=== PATIENT | female | born 1945 | race Hispanic/Latino ===

== ENCOUNTER 2017-05-23 22:42 | Inpatient (IN) | payer OTHER, MEDICARE ==
[~2017-05-23] VITALS: Ht 165.1 cm; Wt 71.3 kg
[2017-05-23] MEDS: SODIUM CHLORIDE 0.9% 1000ML 1,000 ML IV SCH (23:30)
[2017-05-24] MEDS ORDERED: SODIUM CHLORIDE 0.9% 1000ML 1,000 ML IV SCH (00:40)
[2017-05-24] MEDS ORDERED: ONDANSETRON HCL 4 MG/2 ML VIAL IVP PRN (00:45)
[2017-05-24] MEDS ORDERED: DEXTROSE 50%-WATER 50 ML DISP.SYRIN IV PRN (00:45)
[2017-05-24] MEDS ORDERED: NITROGLYCERIN 0.4 MG SL TAB SL PRN (00:45)
[2017-05-24] MEDS ORDERED: ACETAMINOPHEN 325 MG TAB PO PRN (00:45)
[2017-05-24] MEDS ORDERED: DiphenhydrAMINE HCL 50 MG/ML VIAL IV PRN (00:45)
[2017-05-24] MEDS ORDERED: LACTULOSE 20 GM/30 ML UDCUP PO PRN (00:45)
[2017-05-24] MEDS ORDERED: POTASSIUM CHLORIDE 20MEQ/100ML 100 ML IV PRN (00:45)
[2017-05-24] MEDS ORDERED: LIDOCAINE HCL-MPF 1% 2ML VIAL IVP PRN (00:45)
[2017-05-24] MEDS ORDERED: IPRATROPIUM/ALBUTEROL SULFATE 3 ML SOLUTION IH PRN (00:45)
[2017-05-24] MEDS ORDERED: HYDRALAZINE HCL 20 MG/ML VIAL IV PRN (00:45)
[2017-05-24] MEDS ORDERED: GLUCAGON 1MG KIT 1 MG ML IM PRN (00:45)
[2017-05-24] MEDS ORDERED: POTASSIUM CHLORIDE 10% ELIXIR 20 MEQ/15 ML UDCUP PO PRN (00:45)
[2017-05-24] MEDS ORDERED: SODIUM CHLORIDE 0.9% 1000ML 1,000 ML IV ONE (01:19)
[2017-05-24 06:25] LABS: BASOPHILS % (AUTO) 0.3 % (0.0-5.0); EOSINOPHILS % (AUTO) 1.7 % (0.0-8.0); HEMATOCRIT 39.1 % (36-48); LYMPHOCYTES % (AUTO) 35.4 % (21.0-51.0); MEAN CORPUSCULAR HEMOGLOBIN 30.1 pg (27.0-33.0); MEAN CORPUSCULAR HGB CONC 34.6 g/dL (32.0-36.0); MONOCYTES % (AUTO) 7.7 % (3.0-13.0); NEUTROPHILS % (AUTO) 54.9 % (40.0-77.0); PLATELET COUNT (AUTO) 278 K/uL (130-400); RED BLOOD CELL COUNT(AUTO) 4.49 MIL/uL (4.00-5.50); RED CELL DISTRIBUTION WIDTH 13.4 % (11.0-15.5)
[2017-05-24 06:31] LABS: HEMOGLOBIN A1C 13.2 % (4.0-6.0)
[2017-05-24 06:51] LABS: CREATININE 0.8 mg/dL (0.5-1.5); THYROID STIMULATING HORMONE 3.65 uIU/mL (0.36-3.74)
[2017-05-24] MEDS: INSULIN HUMULIN R 100 UNIT/ML 3ML SQ SCH ×4 (07:30→22:54)
[2017-05-24] MEDS: FAMOTIDINE/PF 20 MG/2 ML VIAL IV SCH ×2 (09:00→22:45)
[2017-05-24] MEDS ORDERED: FAMOTIDINE/PF 20 MG/2 ML VIAL IV ONE (09:30)
[2017-05-24] MEDS: SODIUM CHLORIDE 0.9% 1000ML 1,000 ML IV SCH ×2 (12:50→16:04)
[2017-05-24 14:29] VITALS: BP 121/71
[2017-05-24 15:51] VITALS: BP 134/62
[2017-05-24 19:05] VITALS: BP 133/58
[2017-05-24 23:21] VITALS: BP 123/57
[2017-05-24] MEDS ORDERED: MECL-111 PO (23:52)
[2017-05-24] MEDS ORDERED: LORA10TA7 PO (23:52)
[2017-05-24] MEDS ORDERED: ATOR40TA69 PO (23:52)
[2017-05-24] MEDS ORDERED: INSLAN SQ (23:52)
[2017-05-24] MEDS ORDERED: OMEP20TA25 PO (23:52)
[2017-05-24] MEDS ORDERED: FERR324T4 PO (23:52)
[2017-05-24] MEDS ORDERED: CHOL500050 PO (23:52)
[2017-05-24] MEDS ORDERED: SAXA1TBM2 PO (23:52)
[2017-05-24] MEDS ORDERED: GLIP10TA9 PO (23:52)
[2017-05-24] MEDS ORDERED: CITA40TA6 PO (23:52)
[2017-05-24] MEDS ORDERED: LISI10TA7 PO (23:52)
[2017-05-25 00:34] LABS: APPEARANCE,URINE Clear (CLEAR); BILIRUBIN,URINE Negative (NEGATIVE); COLOR,URINE Yellow (YELLOW); GLUCOSE, URINE (UA) >=1000 mg/dL (NEGATIVE); KETONES,URINE 15 mg/dL (NEGATIVE); LEUKOCYTE ESTERASE ,URINE Negative (NEGATIVE); NITRATE,URINE Negative (NEGATIVE); OCCULT BLOOD,URINE Small (NEGATIVE); PH,URINE 7.5 (5.0-8.0); PROTEIN,URINE Negative (NEGATIVE); UROBILINOGEN,URINE 0.2 mg/dL (0.2-1.0)
[2017-05-25 00:45] LABS: BACTERIA,URINE None Seen /HPF (None Seen); RBC,URINE 0-1 /HPF (0-1); SQUAMOUS EPITHELIAL CELL,UR Rare /LPF (0-2); WBC,URINE None Seen /HPF (0-1); YEAST,URINE BUDDING Rare /HPF (None Seen)
[2017-05-25 03:25] VITALS: BP 106/54
[2017-05-25 04:30] LABS: BASOPHILS % (AUTO) 0.4 % (0.0-5.0); EOSINOPHILS % (AUTO) 2.5 % (0.0-8.0); HEMATOCRIT 39.9 % (36-48); LYMPHOCYTES % (AUTO) 33.6 % (21.0-51.0); MEAN CORPUSCULAR HEMOGLOBIN 29.7 pg (27.0-33.0); MEAN CORPUSCULAR HGB CONC 34.3 g/dL (32.0-36.0); MEAN CORPUSCULAR VOLUME 86.7 fL (79-99); MONOCYTES % (AUTO) 7.6 % (3.0-13.0); NEUTROPHILS % (AUTO) 55.9 % (40.0-77.0); PLATELET COUNT (AUTO) 285 K/uL (130-400); RED CELL DISTRIBUTION WIDTH 13.2 % (11.0-15.5); WHITE BLOOD COUNT (AUTO) 6.3 K/uL (4.8-10.8)
[2017-05-25 04:51] LABS: CREATININE 0.6 mg/dL (0.5-1.5); POTASSIUM 3.7 mmol/L (3.5-5.1)
[2017-05-25] MEDS: INSULIN HUMULIN R 100 UNIT/ML 3ML SQ SCH ×4 (06:24→20:54)
[2017-05-25 08:00] VITALS: BP 124/64
[2017-05-25] MEDS: FAMOTIDINE/PF 20 MG/2 ML VIAL IV SCH ×2 (08:15→20:44)
[2017-05-25] MEDS: SODIUM CHLORIDE 0.9% 1000ML 1,000 ML IV SCH ×2 (08:16→20:51)
[2017-05-25] MEDS ORDERED: KETOROLAC TROMETHAMINE 15MG/ML IV PRN (08:45)
[2017-05-25 09:05] LABS: CREATINE KINASE MB < 0.5 ng/mL (0.5-3.6); CREATINE KINASE, TOTAL 24 U/L (21-232); MYOGLOBIN 24 ng/mL (10-92); TROPONIN I < 0.04 ng/mL (0.00-0.06)
[2017-05-25 11:00] VITALS: BP 141/86
[2017-05-25] MEDS: FERROUS SULFATE 325 MG TABLET.DR PO SCH (12:28)
[2017-05-25] MEDS: LISINOPRIL 10 MG TABLET PO SCH (12:28)
[2017-05-25] MEDS: CITALOPRAM 20 MG TABLET PO SCH (12:28)
[2017-05-25] MEDS: LORATADINE 10 MG TABLET PO SCH (12:28)
[2017-05-25 15:17] LABS: CREATINE KINASE MB < 0.5 ng/mL (0.5-3.6); CREATINE KINASE, TOTAL 33 U/L (21-232); MYOGLOBIN 21 ng/mL (10-92); TROPONIN I < 0.04 ng/mL (0.00-0.06)
[2017-05-25 16:00] VITALS: BP 132/65
[2017-05-25 20:00] VITALS: BP 118/68
[2017-05-25] MEDS: ATORVASTATIN CALCIUM 40 MG TABLET PO SCH (20:44)
[2017-05-25] MEDS: INSULIN GLARGINE 100 UNITS/ML 10 ML VIAL SQ SCH (20:53)
[2017-05-26] VITALS (7 sets, daily range): BP systolic 101–130; BP diastolic 52–74
[2017-05-26 05:17] LABS: BASOPHILS % (AUTO) 0.4 % (0.0-5.0); EOSINOPHILS % (AUTO) 2.1 % (0.0-8.0); HEMATOCRIT 38.2 % (36-48); LYMPHOCYTES % (AUTO) 37.9 % (21.0-51.0); MEAN CORPUSCULAR HEMOGLOBIN 30.4 pg (27.0-33.0); MONOCYTES % (AUTO) 6.6 % (3.0-13.0); PLATELET COUNT (AUTO) 298 K/uL (130-400); RED BLOOD CELL COUNT(AUTO) 4.39 MIL/uL (4.00-5.50); RED CELL DISTRIBUTION WIDTH 13.5 % (11.0-15.5)
[2017-05-26 05:33] LABS: CREATININE 0.7 mg/dL (0.5-1.5); POTASSIUM 3.4 mmol/L (3.5-5.1)
[2017-05-26] MEDS: INSULIN HUMULIN R 100 UNIT/ML 3ML SQ SCH ×4 (06:33→21:05)
[2017-05-26] MEDS: LISINOPRIL 10 MG TABLET PO SCH (08:20)
[2017-05-26] MEDS: FAMOTIDINE/PF 20 MG/2 ML VIAL IV SCH ×2 (08:20→21:08)
[2017-05-26] MEDS: FERROUS SULFATE 325 MG TABLET.DR PO SCH (08:20)
[2017-05-26] MEDS: LORATADINE 10 MG TABLET PO SCH (08:20)
[2017-05-26] MEDS: CITALOPRAM 20 MG TABLET PO SCH (08:20)
[2017-05-26] MEDS ORDERED: INSULIN HUMULIN R 100 UNIT/ML 3ML SQ ONE (12:33)
[2017-05-26] MEDS: POTASSIUM CHLORIDE 20 MEQ ERTAB PO PRN ×2 (16:18→17:55)
[2017-05-26] MEDS: INSULIN GLARGINE 100 UNITS/ML 10 ML VIAL SQ SCH (21:07)
[2017-05-26] MEDS: ATORVASTATIN CALCIUM 40 MG TABLET PO SCH (21:08)
[2017-05-27 03:05] VITALS: BP 106/53
[2017-05-27 06:12] LABS: CREATININE 0.7 mg/dL (0.5-1.5); POTASSIUM 4.4 mmol/L (3.5-5.1)
[2017-05-27] MEDS: INSULIN HUMULIN R 100 UNIT/ML 3ML SQ SCH ×4 (06:39→21:32)
[2017-05-27 08:00] VITALS: BP 124/67
[2017-05-27] MEDS: LORATADINE 10 MG TABLET PO SCH (09:08)
[2017-05-27] MEDS: LISINOPRIL 10 MG TABLET PO SCH (09:08)
[2017-05-27] MEDS: FAMOTIDINE/PF 20 MG/2 ML VIAL IV SCH ×2 (09:08→21:26)
[2017-05-27] MEDS: CITALOPRAM 20 MG TABLET PO SCH (09:08)
[2017-05-27] MEDS: FERROUS SULFATE 325 MG TABLET.DR PO SCH (09:08)
[2017-05-27 11:00] VITALS: BP 109/56
[2017-05-27 16:00] VITALS: BP 113/74
[2017-05-27 20:00] VITALS: BP 123/56
[2017-05-27] MEDS: ATORVASTATIN CALCIUM 40 MG TABLET PO SCH (21:27)
[2017-05-27] MEDS: INSULIN GLARGINE 100 UNITS/ML 10 ML VIAL SQ SCH (21:34)
[2017-05-28] VITALS (7 sets, daily range): BP systolic 97–144; BP diastolic 51–73
[2017-05-28] MEDS: INSULIN HUMULIN R 100 UNIT/ML 3ML SQ SCH ×4 (06:23→21:40)
[2017-05-28] MEDS: LORATADINE 10 MG TABLET PO SCH (08:23)
[2017-05-28] MEDS: FAMOTIDINE/PF 20 MG/2 ML VIAL IV SCH ×2 (08:23→21:41)
[2017-05-28] MEDS: FERROUS SULFATE 325 MG TABLET.DR PO SCH (08:23)
[2017-05-28] MEDS: LISINOPRIL 10 MG TABLET PO SCH (08:23)
[2017-05-28] MEDS: CITALOPRAM 20 MG TABLET PO SCH (08:23)
[2017-05-28] MEDS: INSULIN GLARGINE 100 UNITS/ML 10 ML VIAL SQ SCH (21:41)
[2017-05-28] MEDS: ATORVASTATIN CALCIUM 40 MG TABLET PO SCH (21:41)
[2017-05-29 03:25] VITALS: BP 98/46
[2017-05-29] MEDS: INSULIN HUMULIN R 100 UNIT/ML 3ML SQ SCH ×4 (05:46→21:57)
[2017-05-29] MEDS: CITALOPRAM 20 MG TABLET PO SCH (07:59)
[2017-05-29] MEDS: FERROUS SULFATE 325 MG TABLET.DR PO SCH (07:59)
[2017-05-29] MEDS: LORATADINE 10 MG TABLET PO SCH (08:00)
[2017-05-29] MEDS: LISINOPRIL 10 MG TABLET PO SCH ×2 (08:00→08:04)
[2017-05-29] MEDS: FAMOTIDINE/PF 20 MG/2 ML VIAL IV SCH ×2 (08:00→21:51)
[2017-05-29 08:16] VITALS: BP 104/48
[2017-05-29 12:00] VITALS: BP 127/63
[2017-05-29 16:00] VITALS: BP 122/67
[2017-05-29 20:00] VITALS: BP 130/61
[2017-05-29] MEDS: ATORVASTATIN CALCIUM 40 MG TABLET PO SCH (21:51)
[2017-05-29] MEDS: INSULIN GLARGINE 100 UNITS/ML 10 ML VIAL SQ SCH (21:58)
[2017-05-30] VITALS (7 sets, daily range): BP systolic 92–124; BP diastolic 46–61
[2017-05-30] MEDS: INSULIN HUMULIN R 100 UNIT/ML 3ML SQ SCH ×4 (06:18→20:01)
[2017-05-30] MEDS: CITALOPRAM 20 MG TABLET PO SCH (09:36)
[2017-05-30] MEDS: FERROUS SULFATE 325 MG TABLET.DR PO SCH (09:36)
[2017-05-30] MEDS: FAMOTIDINE/PF 20 MG/2 ML VIAL IV SCH ×2 (09:36→20:04)
[2017-05-30] MEDS: LORATADINE 10 MG TABLET PO SCH (09:36)
[2017-05-30] MEDS: LISINOPRIL 10 MG TABLET PO SCH (09:36)
[2017-05-30] MEDS: ATORVASTATIN CALCIUM 40 MG TABLET PO SCH (20:04)
[2017-05-30] MEDS ORDERED: INSULIN GLARGINE 100 UNITS/ML 10 ML VIAL SQ SCH (21:00)
[2017-05-31] VITALS: BP 129/52
[2017-05-31 04:00] VITALS: BP 93/55
[2017-05-31 05:20] LABS: CREATININE 0.8 mg/dL (0.5-1.5); POTASSIUM 3.8 mmol/L (3.5-5.1)
[2017-05-31] MEDS: INSULIN HUMULIN R 100 UNIT/ML 3ML SQ SCH ×3 (06:26→16:30)
[2017-05-31 08:00] VITALS: BP_SYST 106; BP_SYST 144; BP_DIAS 57; BP_DIAS 92
[2017-05-31] MEDS: FAMOTIDINE/PF 20 MG/2 ML VIAL IV SCH (08:22)
[2017-05-31] MEDS: FERROUS SULFATE 325 MG TABLET.DR PO SCH (08:22)
[2017-05-31] MEDS: CITALOPRAM 20 MG TABLET PO SCH (08:22)
[2017-05-31] MEDS: LISINOPRIL 10 MG TABLET PO SCH (08:23)
[2017-05-31] MEDS: LORATADINE 10 MG TABLET PO SCH (08:23)
[2017-05-31 11:56] VITALS: BP 132/89
[2017-05-31] MEDS ORDERED: INSULIN GLARGINE 100 UNITS/ML 10 ML VIAL SQ SCH (21:00)
[2017-08-15] MEDS ORDERED: POTA20PA32 PO (05:30)
[2017-08-15] MEDS ORDERED: ACET-2247 PO (05:30)
[2017-08-15] MEDS ORDERED: NITR0.4T50 SL (05:30)
[2017-08-15] MEDS ORDERED: DONE10TA8 PO (05:30)
== END 2017-05-31 19:13 | disposition home or self-care (01) | DRG 639 ==
LOC: EDH 22:42 → EDHIP 23:00 → 3DH 05-24 13:32
PROVIDERS: ADMIT Family Medicine; ATTEND Family Medicine
DX: E11.65 Type 2 diabetes mellitus with hyperglycemia (principal); R13.10 Dysphagia, unspecified; G30.9 Alzheimer's disease, unspecified; R63.0 Anorexia; F02.80 Dementia in other diseases classified elsewhere, unspecified severity, without behavioral disturbance, psychotic disturbance, mood disturbance, and anxiety; K21.9 Gastro-esophageal reflux disease without esophagitis; E78.5 Hyperlipidemia, unspecified; F32.9 Major depressive disorder, single episode, unspecified; F41.9 Anxiety disorder, unspecified; I10 Essential (primary) hypertension; R32 Unspecified urinary incontinence; M19.90 Unspecified osteoarthritis, unspecified site; Z79.4 Long term (current) use of insulin; Z90.710 Acquired absence of both cervix and uterus
CPT/HCPCS: 36415; 71045; 74230; 80048; 80061; 81001; 82550; 82553; 82947; 82948; 83036; 83874; 84443; 84484; 85025; 92610; 92611; 93005; 94664; J1815; J3490; J7030